=== PATIENT | female | born 1990 | race Caucasian/White ===

== ENCOUNTER 2022-01-13 19:28 | Inpatient (IN) ==
[2022-01-13 21:04] LABS: Basophils % 0.3 %; Eosinophils # 0.1 K/mcL (0.0-0.6); Eosinophils % 0.8 %; Hematocrit 35.8 % (35.3-44.9); Hemoglobin 11.3 g/dL (11.5-15.4); Immature Granulocytes % 1.7 % (0-4); Lymphocytes # 0.7 K/mcL (0.6-4.6); Lymphocytes % 10.3 %; Mean Corpuscular HGB Conc 31.6 g/dL (31.6-35.5); Mean Corpuscular Hemoglobin 28.1 pg (28.0-33.3); Mean Corpuscular Volume 89.1 fL (83.0-100.0); Mean Platelet Volume 9.4 fL (9.4-12.4); Monocytes % 13.4 %; Neutrophils # 5.2 K/mcL (1.6-8.9); Platelet Count 305 K/mcL (140-400); Red Blood Count 4.02 M/mcL (3.82-4.97); Red Cell Distribution Width 13.4 % (11.5-14.5); Segmented Neutrophils % 73.5 %; White Blood Count 7.1 K/mcL (4.3-11.1)
[2022-01-13 21:19] LABS: BUN/Creatinine Ratio 12 (6-26); Blood Urea Nitrogen 8 mg/dL (6-20); Calcium 9.1 mg/dL (8.6-10.3); Carbon Dioxide 23 mEq/L (23-29); Chloride 104 mEq/L (98-107); Glucose 95 mg/dL (70-105); Osmolality,Calculated 278 (280-300); Potassium 3.5 mEq/L (3.5-5.1); Sodium 135 mEq/L (136-145); eGFR For African Americans > 60 (> 60); eGFR For Non-African Americans > 60 (> 60)
[2022-01-13] MEDS ORDERED: Iopamidol - 370 500 ML MLS IVP ONE (21:39)
[2022-01-13] MEDS ORDERED: Ondansetron 4 MG/2 ML VIAL IVP ONE (21:51)
[2022-01-13] MEDS ORDERED: *HR* HYDROmorphone (PF) 1 MG/ML SYRINGE IVP ONE (21:51)
[2022-01-13 22:06] LABS: Alanine Aminotransferase 13 Units/L (7-52); Albumin 4.1 g/dL (3.5-5.7); Albumin/Globulin Ratio 1.4 (1.1-2.2); Alkaline Phosphatase 51 Units/L (34-104); Aspartate Amino Transferase 14 Units/L (13-39); Bilirubin,Direct 0.1 mg/dL (0.0-0.2); Bilirubin,Indirect 0.3 mg/dL (0.0-1.0); Bilirubin,Total 0.4 mg/dL (0.3-1.0); Lipase 21 Units/L (11-82); Total Protein 7.1 g/dL (6.4-8.9)
[2022-01-13] MEDS: 0.9 % Sodium Chloride 1,000 ML IVC ONE (22:21)
[2022-01-14 00:41] LABS: Bilirubin,Urine Negative (Negative); Blood,Urine Small (Negative); Clarity,Urine Clear (Clear); Color,Urine Colorless (Yellow); Glucose,Urine (UA) Normal (Normal); Ketones,Urine 20 mg/dL (Negative); Leukocyte Esterase,Urine Negative (Negative); Mucus,Urine Few per lpf (None-Few); Nitrite,Urine Negative (Negative); PH,Urine 6.5 pH Units (5.0-8.0); Protein,Urine 30 mg/dL (Neg-Trace); Specific Gravity,Urine > 1.030 (1.010-1.025); Squamous Epithelial Cell,Urine Moderate per hpf (None-Few); Urobilinogen,Urine Normal (Normal); WBC,Urine 0-3 per hpf (0-3)
[2022-01-14] MEDS ORDERED: 0.9 % Sodium Chloride 1,000 ML IVC ONE ×2 (00:45→08:32)
[2022-01-14 01:08] LABS: Adenovirus Not Detected (Not Detect); Coronavirus 229E Not Detected (Not Detect); Coronavirus HKU1 Not Detected (Not Detect); Coronavirus NL63 Not Detected (Not Detect); Coronavirus OC43 Not Detected (Not Detect)
[2022-01-14 01:09] LABS: Bordetella Pertussis Not Detected (Not Detect); Chlamydophila pneumoniae Not Detected (Not Detect); Human Metapneumovirus Not Detected (Not Detect); Human Rhinovirus/Enterovirus Not Detected (Not Detect); Influenza A Subtype 2009 H1 Not Detected (Not Detect); Influenza B Not Detected (Not Detect); Mycoplasma pneumoniae Not Detected (Not Detect); Parainfluenza Virus 1 Not Detected (Not Detect); Parainfluenza Virus 2 Not Detected (Not Detect); Parainfluenza Virus 3 Not Detected (Not Detect); Parainfluenza Virus 4 Not Detected (Not Detect); Respiratory Syncytial Virus Not Detected (Not Detect); SARS-CoV-2 DETECTED (Not Detect)
[2022-01-14] MEDS ORDERED: Morphine Sulfate 2 MG/ML SYRINGE IVP ONE (01:34)
[2022-01-14] MEDS ORDERED: Naloxone 0.4 MG/ML INJ IVP PRN (03:55)
[2022-01-14] MEDS ORDERED: Melatonin 3 MG TABLET PO PRN (03:55)
[2022-01-14] MEDS ORDERED: *HR* Promethazine 25 MG/ML VIAL IM PRN (03:55)
[2022-01-14] MEDS ORDERED: *HR* OxyCODONE Immed Rel 5 MG TABLET PO PRN (03:55)
[2022-01-14] MEDS ORDERED: *HR* HYDROcodone/Acet 5/325 mg TABLET PO PRN (03:55)
[2022-01-14] MEDS ORDERED: Morphine Sulfate 2 MG/ML SYRINGE IVP PRN (06:04)
[2022-01-14 07:17] LABS: Basophils % 0.3 %; Eosinophils % 0.5 %; Hematocrit 31.7 % (35.3-44.9); Immature Granulocytes % 1.9 % (0-4); Lymphocytes # 0.7 K/mcL (0.6-4.6); Lymphocytes % 11.5 %; Mean Corpuscular HGB Conc 31.5 g/dL (31.6-35.5); Mean Corpuscular Hemoglobin 28.3 pg (28.0-33.3); Mean Corpuscular Volume 89.8 fL (83.0-100.0); Mean Platelet Volume 9.5 fL (9.4-12.4); Monocytes # 0.8 K/mcL (0.0-1.3); Neutrophils # 4.2 K/mcL (1.6-8.9); Platelet Count 248 K/mcL (140-400); Red Blood Count 3.53 M/mcL (3.82-4.97); Red Cell Distribution Width 13.6 % (11.5-14.5); Segmented Neutrophils % 71.8 %; White Blood Count 5.9 K/mcL (4.3-11.1)
[2022-01-14 07:44] LABS: BUN/Creatinine Ratio 9 (6-26); Blood Urea Nitrogen 6 mg/dL (6-20); Calcium 8.2 mg/dL (8.6-10.3); Carbon Dioxide 22 mEq/L (23-29); Chloride 108 mEq/L (98-107); Glucose 88 mg/dL (70-105); Magnesium 1.6 mg/dL (1.6-2.6); Osmolality,Calculated 281 (280-300); Potassium 3.2 mEq/L (3.5-5.1); Sodium 137 mEq/L (136-145); eGFR For African Americans > 60 (> 60); eGFR For Non-African Americans > 60 (> 60)
[2022-01-14 07:46] LABS: Alanine Aminotransferase 10 Units/L (7-52); Albumin 3.5 g/dL (3.5-5.7); Albumin/Globulin Ratio 1.3 (1.1-2.2); Alkaline Phosphatase 42 Units/L (34-104); Aspartate Amino Transferase 12 Units/L (13-39); Bilirubin,Direct 0.1 mg/dL (0.0-0.2); Bilirubin,Indirect 0.2 mg/dL (0.0-1.0); Bilirubin,Total 0.3 mg/dL (0.3-1.0); Globulin 2.6 g/dL (2.4-3.5); Total Protein 6.1 g/dL (6.4-8.9)
[2022-01-14] MEDS: 0.9 % Sodium Chloride 1,000 ML IVC ONE (08:54)
[2022-01-14] MEDS: MethylPREDNISolone 40 MG/ML VIAL IVP SCH ×3 (08:55→23:08)
[2022-01-14] MEDS ORDERED: Potassium Chloride Elixir 20 MEQ/15 ML UDC PO ONE (10:59)
[2022-01-14] MEDS: 0.9 % Sodium Chloride 1,000 ML IVC SCH ×2 (12:25→23:07)
[2022-01-14 13:18] LABS: C-Reactive Protein < 5 mg/L (Less than 10)
[2022-01-14] MEDS: Ondansetron 4 MG/2 ML VIAL IVP PRN (13:18)
[2022-01-14] MEDS: *HR* HYDROmorphone (PF) 1 MG/ML SYRINGE IVP PRN ×2 (13:18→19:53)
[2022-01-14] MEDS: Acetaminophen 325 MG TABLET PO PRN ×2 (13:19→20:00)
[2022-01-15] MEDS: *HR* HYDROmorphone (PF) 1 MG/ML SYRINGE IVP PRN ×5 (00:16→22:13)
[2022-01-15] MEDS: 0.9 % Sodium Chloride 1,000 ML IVC SCH ×3 (01:04→11:55)
[2022-01-15] MEDS: Acetaminophen 325 MG TABLET PO PRN ×2 (05:24→18:20)
[2022-01-15 07:08] LABS: Hematocrit 33.4 % (35.3-44.9); Hemoglobin 10.5 g/dL (11.5-15.4); Mean Corpuscular HGB Conc 31.4 g/dL (31.6-35.5); Mean Corpuscular Hemoglobin 28.2 pg (28.0-33.3); Mean Corpuscular Volume 89.5 fL (83.0-100.0); Mean Platelet Volume 9.3 fL (9.4-12.4); Platelet Count 303 K/mcL (140-400); Red Blood Count 3.73 M/mcL (3.82-4.97); Red Cell Distribution Width 13.3 % (11.5-14.5); Segmented Neutrophils % 76.8 %; White Blood Count 6.1 K/mcL (4.3-11.1)
[2022-01-15 07:09] LABS: Basophils % 0.2 %; Immature Granulocytes % 1.5 % (0-4); Lymphocytes # 0.9 K/mcL (0.6-4.6); Lymphocytes % 14.1 %; Monocytes # 0.5 K/mcL (0.0-1.3); Monocytes % 7.4 %; Neutrophils # 4.7 K/mcL (1.6-8.9)
[2022-01-15 07:43] LABS: BUN/Creatinine Ratio 12 (6-26); Blood Urea Nitrogen 6 mg/dL (6-20); Calcium 8.7 mg/dL (8.6-10.3); Carbon Dioxide 22 mEq/L (23-29); Chloride 106 mEq/L (98-107); Glucose 141 mg/dL (70-105); Osmolality,Calculated 282 (280-300); Sodium 136 mEq/L (136-145); eGFR For African Americans > 60 (> 60); eGFR For Non-African Americans > 60 (> 60)
[2022-01-15] MEDS: MethylPREDNISolone 40 MG/ML VIAL IVP SCH ×3 (09:20→23:47)
[2022-01-15] MEDS ORDERED: Benzonatate 100 MG CAPSULE PO PRN (11:02)
[2022-01-15] MEDS: Ondansetron 4 MG/2 ML VIAL IVP PRN (13:35)
[2022-01-16] MEDS: *HR* HYDROmorphone (PF) 1 MG/ML SYRINGE IVP PRN ×2 (02:24→06:28)
[2022-01-16] MEDS: Acetaminophen 325 MG TABLET PO PRN (02:24)
[2022-01-16] MEDS: 0.9 % Sodium Chloride 1,000 ML IVC SCH (02:25)
[2022-01-16 06:33] LABS: Basophils % 0.1 %; Hematocrit 34.6 % (35.3-44.9); Hemoglobin 10.8 g/dL (11.5-15.4); Immature Granulocytes % 0.9 % (0-4); Lymphocytes # 1.3 K/mcL (0.6-4.6); Lymphocytes % 12.4 %; Mean Corpuscular HGB Conc 31.2 g/dL (31.6-35.5); Mean Corpuscular Hemoglobin 28.3 pg (28.0-33.3); Mean Corpuscular Volume 90.6 fL (83.0-100.0); Mean Platelet Volume 9.8 fL (9.4-12.4); Monocytes # 0.7 K/mcL (0.0-1.3); Monocytes % 6.7 %; Neutrophils # 8.1 K/mcL (1.6-8.9); Platelet Count 378 K/mcL (140-400); Red Blood Count 3.82 M/mcL (3.82-4.97); Red Cell Distribution Width 13.2 % (11.5-14.5); Segmented Neutrophils % 79.9 %
[2022-01-16 06:37] LABS: White Blood Count 10.1 K/mcL (4.3-11.1)
[2022-01-16 07:13] LABS: BUN/Creatinine Ratio 15 (6-26); Blood Urea Nitrogen 10 mg/dL (6-20); Calcium 8.9 mg/dL (8.6-10.3); Carbon Dioxide 27 mEq/L (23-29); Chloride 104 mEq/L (98-107); Glucose 227 mg/dL (70-105); Osmolality,Calculated 290 (280-300); Potassium 4.1 mEq/L (3.5-5.1); Sodium 137 mEq/L (136-145); eGFR For African Americans > 60 (> 60); eGFR For Non-African Americans > 60 (> 60)
[2022-01-16] MEDS: *HR* OxyCODONE/APAP 5/325 TABLET PO PRN ×3 (10:45→21:35)
[2022-01-16] MEDS: MethylPREDNISolone 40 MG/ML VIAL IVP SCH (10:46)
[2022-01-16] MEDS: Ondansetron 4 MG/2 ML VIAL IVP PRN (10:50)
[2022-01-16] MEDS: predniSONE 20 MG TABLET PO SCH (12:35)
[2022-01-17] MEDS: predniSONE 20 MG TABLET PO SCH (07:20)
[2022-01-17] MEDS: *HR* OxyCODONE/APAP 5/325 TABLET PO PRN ×2 (10:06→14:35)
[2022-01-17 11:22] VITALS: BP 110/72; PULSE 81; TEMP 97.9; O2SAT 95
== END 2022-01-17 15:12 | disposition home or self-care (01) | DRG 385 ==
LOC: 3ANU 19:28 → EMEROOARM 19:28 → SUATTDRO 01-14 02:10 → 3ANU 01-14 03:16
PROVIDERS: ADMIT Internal Medicine; ATTEND Internal Medicine